=== PATIENT | female | born 1985 ===

== ENCOUNTER 2017-11-24 19:45 | Emergency (ER) | payer SELFPAY ==
[2017-11-24 20:02] VITALS: BMI 26.8
[2017-11-24 20:41] LABS: SQUAMOUS EPITHIAL 1 /hpf (0-5); URINE BILIRUBIN NEGATIVE (NEGATIVE); URINE BLOOD NEGATIVE (NEGATIVE); URINE CLARITY Clear (Clear); URINE GLUCOSE (UA) NORMAL (Normal); URINE LEUKOCYTE ESTERASE NEG Leu/uL (Negative); URINE PROTEIN NEGATIVE (NEGATIVE); URINE UROBILINOGEN NORMAL mg/dL (0.2-1.0)
[2017-11-24 20:42] LABS: URINE COLOR LIGHT RED (YELLOW)
--- NOTE | 2017-11-24 21:11 | OBPN ---
Datetime: 11/24/2017 21:02 IP Progress Impression Other: pelvic pain IP Procedures: Sterile Vag Exam IP Progress Plan: Discharge Contraction Comments Provider: none [facility] - Baseline A Provider: 130 IP Progress Note Comment: PT is 32 @ 21 1/7 weeks by stated EDC: 04/05. Pt presented today wi th complaints of lower pelvic pain 04/05 at 5pm. She states that the pain is sharp, does not radiate a nd this is her first episdoe. She states that nothing makes the pain better or worse. She denies cons tipatin. She gets PNC at [place]. She had an US on Sunday that was normal. She denies vaginal bl eeding or leaking of fluid. PT states that she does feel the baby move. POBHx: . 5 yrs ago. PMHx: none. PSHx:none Medical hx: UTI during this . All:NKDA Social: Denies ETOH and smoking Assessment: UA was sent and it was normal. Pt currently taking antibiotics. Pelvic pain resolved after admission. Pelvic exam performed and rectum was full of stool. Most likely consiptation Plan: 1) Recommend discharge home. 2) Colace suppository 3) Follow up with her provider. Vital Signs Provider: Reviewed [facility] Accel Fetus A IP Provider: [id number] [facility] Variability Prov Fetus A: Moderate 6-25bpm Dilatation, Provider: closed Effacement, Provider: 0 Station, Provider: -3 [facility] Decel Fetus A IP Provider: None
[2017-11-25 01:52] VITALS: BP 128/76; PULSE 89; RESP 18; TEMP 98.1
== END 2017-11-24 21:10 | disposition home or self-care (01) ==
LOC: C.EROB 19:45
DX: O26.92 Pregnancy related conditions, unspecified, second trimester (principal); R10.2 Pelvic and perineal pain; Z3A.21 21 weeks gestation of pregnancy